=== PATIENT | male | born 1960 | race Caucasian/White ===

== ENCOUNTER → 2019-08-12 | Outpatient (CLI) | payer OTHER ==
[~2019-08-12] MED LIST: REGADENOSON 0.4 MG/5 ML DISP.SYRIN. IV ONE
--- NOTE | 2019-08-12 11:37 | PCVCIMAG ---
APPROVED REPORT Imaging Protocol: Rest Tc-99m/Stress Tc-99m 1 day Study performed: 08/12/2019 08:59:20 Indication: CAD Patient Location: Out-Patient Stress Nurse: [place] RN, Karla Skinner RN [place] Tech:Thompson Aranda NMTCB Ht: 6 ft 1 in Wt: 210 lbs BSA: 2.20 m2 HR: 85 bpm BP: 123/87 mmHg BMI: 27.70 Rhythm: Sinus Rhythm, T wave abnormality Medical History Medical History: Age, Hyperlipidemia, HTN, CAD, Former Smoker Medications: ASA, Atorvastatin, Losartan, Metoprolol Allergies: Hydrocodone Previous Cardiac Procedures: AR, PCI Pretest Chest Pain Characteristics: No chest pain Exercise History: Physically active Resting Data Rest SPECT myocardial perfusion imaging was performed in supine position 45 minutes following the intravenous injection of 11.2 mCi of Tc-99m Sestamibi. Time of rest injection: 0845 Date: 08/12/2019 Administration Route: IV Administration Site: Right Arm Pharmacologic Stress Pharmacologic stress test was performed by injecting Regadenoson 0.4 mg IV push over 10-15 seconds immediately followed by the intravenous injection of 34.9 mCi of Tc-99m Sestamibi. Time of stress injection: 1010 Date: 08/12/2019 Administration Route: IV Administration Site: Right Arm Gated Stress SPECT was performed 45 minutes after stress injection. The images were gated to evaluate regional wall motion and calculate left ventricular ejection fraction. Stress Test Details Stress Test: Pharmacologic stress was paired with low level exercise. Reason for pharmacologic stress test: Back Problems. HRMax Heart Rate (APMHR): 163 bpm Resting HR: 85 bpmTarget HR (85% APMHR): 138 bpm Max HR Achieved: 109 bpm % of APMHR: 66 Recovery HR: 77 bpm BP Resting BP: 123/87 mmHg Max BP: 127/77 mmHg Recovery BP: 118/78 mmHg ECG Resting ECG: Sinus Rhythm, T wave abnormality Stress ECG: Sinus Tachycardia, T wave abnormality ST Change: Non-ischemic Arrhythmia: PVC's Recovery ECG: Sinus Rhythm, T wave abnormality Clinical Reason for Termination: Completed protocol Stress Symptoms: Dyspnea Symptoms resolved during recovery. Study Quality Study: Good Artifact: Moderate Diaphragmatic artifact Study Data Post stress, the left ventricular ejection was 68%.. SSS: 8 SRS: 9 SDS: 1 TID = 0.98. Perfusion There is a medium area of moderately reduced uptake in the basal and mid segment of the inferolateral wall which is seen on the stress images as well as the resting images. This area thickens and moves normally and is most consistent with attenuation artifact. Wall Motion Normal left ventricular wall motion. Nuclear Conclusion ECG Findings: negative for ischemia Clinical Findings: non-diagnostic Nuclear Findings: negative for ischemia Exercise Capacity: not assessed Left Ventricular Function: normal Risk Study: low This study is of low probability for inducible ischemia or prior infarct. Normal global and segmental LV systolic function. Artifact: Moderate Diaphragmatic artifact
== END | disposition home or self-care (01) ==
LOC: PCVCIMAG 09:07
PROVIDERS: ATTEND Internal Medicine Cardiovascular Disease
DX: I25.10 Atherosclerotic heart disease of native coronary artery without angina pectoris (principal); I10 Essential (primary) hypertension; E78.00 Pure hypercholesterolemia, unspecified; K21.9 Gastro-esophageal reflux disease without esophagitis; E78.5 Hyperlipidemia, unspecified; Z79.82 Long term (current) use of aspirin; Z87.891 Personal history of nicotine dependence
CPT/HCPCS: 78452; 93017; A9500; J2785